=== PATIENT | male | born 1990 | race Caucasian/White ===

== ENCOUNTER 2017-03-09 23:38 | Emergency (ER) | payer SELFPAY ==
--- NOTE | ~2017-03-09 | ER ---
PATIENT'S NAME: RAMAKRISHNA [facility] AGE: 26 Y [address] ROOM: [place] [address] LOCATION: [facility] ADMIT DATE: 03/09/2017 ER/Outpatient Report DISCHARGE DATE: 03/10/2017 FAMILY PHYSICIAN: Rolando Wilkerson MD ATTENDING PHYSICIAN: Dhruv Miller CHIEF COMPLAINT: Transient vision changes and facial numbness. HISTORY OF PRESENT ILLNESS: The patient notes that for 10 to 15 minutes around 11:00 p.m., he developed some difficulty transient wavy vision in his left eye with some left facial tingling, which is very poorly described. He states that upon arrival all of his symptoms have improved. He notes that his blood pressure has been higher over the last few months whenever he would take it. He did start a new supplement recently. He was getting ready to go to a workout when the symptoms started. He denies any other issues at this time. He states his vision never did black out. It was most prominent on the left eye, kind of down, low and laterally. No symptoms of voice or sensation otherwise, hearing or extremity weakness or confusion. PAST MEDICAL HISTORY: Documented on the record and reviewed by me. SOCIAL HISTORY: Documented on the record and reviewed by me. MEDICATIONS: Documented on the record and reviewed by me. ALLERGIES: DOCUMENTED ON THE RECORD AND REVIEWED BY ME. REVIEW OF SYSTEMS: All systems reviewed and negative except as noted in the HPI. PHYSICAL EXAMINATION: VITAL SIGNS: Blood pressure 167/100, pulse 94, respiratory rate 20, temperature 97.6, and SpO2 is 100% on room air. GENERAL: Age-appropriate male, no obvious pain or distress, sitting upright on the exam table, in good spirits. NEUROLOGIC: The patient is awake and alert. GCS is 15. No focal deficits. No abnormalities on exam. Visual morgan are intact to confrontation. Vision grossly intact bilateral. Extraocular movements are intact. Eyes are PERRL. No asymmetry on exam otherwise. PATIENT'S NAME: RAMAKRISHNA [facility] AGE: 26 Y [address] ROOM: [place] [address] LOCATION: [facility] ADMIT DATE: 03/09/2017 ER/Outpatient Report DISCHARGE DATE: 03/10/2017 FAMILY PHYSICIAN: Rolando Wilkerson MD ATTENDING PHYSICIAN: Dhruv Miller HEENT: Normocephalic, atraumatic. Eyes are PERRL. Oropharynx is clear. Left TM was not visualized secondary to cerumen impaction. No evidence of zoster infection. NECK: Supple. Trachea is midline. CHEST: Heart has regular rate and rhythm. No murmurs. LUNGS: Clear to auscultation bilateral. No rhonchi, wheezes, or rales. ABDOMEN: Soft, nontender, nondistended. No rebound or guarding. BACK: Normal to inspection and palpation. EXTREMITIES: Warm and well perfused. No deformities. SKIN: Clean, dry, and intact. No erythema or rashes appreciated. LABORATORY DATA AND X-RAYS: Head CT was unremarkable. Renal panel without abnormalities. Troponin is below detectable threshold. CBC without appreciable abnormality other than an MCV of 81.3. INR is 1. EKG: Sinus rhythm, rate of 85 with normal intervals and axis. No signs of acute ischemia. No comparison available. Head CT unremarkable per Radiology. IMPRESSION: Transient vision changes of the left eye. EMERGENCY DEPARTMENT COURSE: The patient was seen and evaluated. No clear neurologic deficit at this time. The transient nonspecific nature makes TIA less likely. Partial Abraham's palsy was considered; however, there was no persistent deficit and no evidence of abnormality of the left cranial nerve 7. In any case, he is at his baseline. No further symptomatology at this time. Recommend close followup on Thursday as previously scheduled. Return immediately if worse. All questions were answered, and the patient was discharged in good condition. MD SPRING WEAVER/modl /[id number] d: 03/10/179 t: 03/10/171933, OUTPATIENT REPORT
[2017-03-10 00:06] LABS: BASOPHIL # 0.1 K/uL (0.0-0.2); BASOPHIL % 0.7 %; EOSINOPHIL # 0.2 K/uL (0.0-0.5); HEMATOCRIT 40.8 % (37.0-53.0); HEMOGLOBIN 14.5 g/dL (12.0-17.0); IMMATURE GRANULOCYTE % 0.5 %; LYMPHOCYTE # 1.8 K/uL (0.8-4.0); LYMPHOCYTE % 20.2 %; MCH 28.9 pg (27.0-34.0); MCHC 35.5 gm/dL (32.0-36.5); MCV 81.3 fl (83.0-98.0); MONOCYTE # 0.7 K/uL (0.0-1.0); MONOCYTE % 8.2 %; MPV 9.9 fl (9.4-12.4); NEUTROPHIL % 68.4 %; NRBC % 0 /100WBC (0-0.00); PLATELET COUNT 208 K/uL (150-450); RBC 5.02 M/uL (4.00-6.00); RDW-CV 13.3 % (11.9-14.6); WBC 8.8 K/uL (4.0-11.0)
[2017-03-10 00:16] LABS: INR - (THERAPEUTIC) 1.01 (0.92-1.07); PROTIME 10.6 SECONDS (9.8-11.4); PTT 26 SECONDS (25-32)
[2017-03-10 00:24] LABS: ALBUMIN 4.2 gm/dL (3.5-5.0); ANION GAP 11.1 (10.0-19.0); BLOOD UREA NITROGEN 23 mg/dL (6-24); CALCIUM 9.1 mg/dL (8.5-10.5); CHLORIDE 107 mMol/L (96-110); CO2 27 mMol/L (22-32); CREATININE 1.3 mg/dL (0.6-1.3); ESTIMATED GFR (MDRD EQUATION) > 60; PHOSPHORUS 3.4 mg/dL (2.5-4.9); POTASSIUM 4.1 mMol/L (3.7-5.1); SODIUM 141 mMol/L (135-145)
== END 2017-03-10 00:42 | disposition disaster alternative care site (69) ==
LOC: GMED 23:38
PROVIDERS: Emergency Medicine
DX: H53.8 Other visual disturbances (principal)